=== PATIENT | female | born 2000 | race Two or more races ===

== ENCOUNTER 2023-12-11 10:51 | Emergency (ER) | payer OTHER ==
[~2023-12-11] VITALS: Ht 172.7 cm; Wt 74.8 kg
[2023-12-11] MEDS ORDERED: NAYZILAM5 MG/0.1 M NS (11:32)
[2023-12-11] MEDS ORDERED: VIMPAT50 MG PO (11:32)
[2023-12-11] MEDS ORDERED: VIMPAT100 MG PO (11:32)
[2023-12-11] MEDS ORDERED: LAMOTRIGINE250 MG PO (11:32)
[2023-12-11 12:46] LABS: HEMATOCRIT 38.6 % (36.0-45.00); HEMOGLOBIN 13.4 g/dL (12.0-15.00); MEAN CELL VOLUME 86.7 fL (80.00-100.00); MEAN CORPUSCULAR HGB CONC 34.6 g/dl (32.0-36.0); PLATELET COUNT 270 K/uL (150-450); RED BLOOD COUNT 4.45 M/uL (4.00-6.00); RED CELL DISTRIBUTION WIDTH 13.1 % (11.5-14.5)
[2023-12-11 13:01] LABS: CALCIUM 9.4 mg/dL (8.5-10.1); CREATININE SERUM 0.96 mg/dL (0.55-1.02); GFR 72.68; POTASSIUM 4.03 mEq/L (3.5-5.1)
== END 2023-12-11 13:57 | disposition home or self-care (01) ==
LOC: ER 10:51
PROVIDERS: Emergency Medicine
DX: S51.011A Laceration without foreign body of right elbow, initial encounter (principal); X58.XXXA Exposure to other specified factors, initial encounter; Y93.89 Activity, other specified; Y92.89 Other specified places as the place of occurrence of the external cause; Y99.8 Other external cause status; R56.9 Unspecified convulsions